=== PATIENT | female | born 1955 | race Caucasian/White ===

== ENCOUNTER → 2023-11-25 15:07 | Outpatient (REF) | payer BC, MEDICARE, SELFPAY | LOC: RAD 15:07 | PROVIDERS: ATTENDING PHYSICIAN Physician Assistant Medical; FAMILY PHYSICIAN Nurse Practitioner Family | DX: R05.1 Acute cough (principal) | CPT/HCPCS: 71046 ==

== ENCOUNTER → 2024-08-21 15:05 | Outpatient (REF) | payer BC, MEDICARE, SELFPAY | LOC: HWEVLT 15:05 | PROVIDERS: ATTENDING PHYSICIAN Radiology Diagnostic Radiology | DX: I83.892 Varicose veins of left lower extremity with other complications (principal) | CPT/HCPCS: 93971 ==